=== PATIENT | female | born 1980 | race Caucasian/White ===

== ENCOUNTER 2016-10-16 14:46 | Emergency (ER) | payer OTHER ==
[2016-10-16 14:56] VITALS: BP 120/56; PULSE 82; TEMP 98.2
[2016-10-16] MEDS ORDERED: AMPICILLIN NA/SULBACTAM NA 3 GM in SODIUM CHLORIDE 100 ML IVPB ONE (15:31)
--- NOTE | 2016-10-16 15:38 | PDOC ---
History of Present Illness - General Chief Complaint: Bite Stated Complaint: CAT BITE Time Seen by Provider: 10/16/16 15:19 History Source: Patient Exam Limitations: No Limitations - History of Present Illness Initial Comments: 10/16/16 15:33 35 yr female right hand dominant with cat bite to her left hand 4 days ago by her own cat. Pt states the cat is UTD with rabies vaccines. Pt states she cleaned wound with peroxide then put liquid bandaid over the wound. Pt removed the liquid bandaid after she noticed the wound had pus drainage. Pt denies fever or chills. no medical history. 10/16/16 16:59 Timing/Duration: reports: other (3 nights one day ago ) Severity: Yes: moderate Location: reports: hands (left ) Respiratory Risk Factors: reports: other (cat bite) Past History - Past Medical History Allergies/Adverse Reactions: Allergies Allergy/AdvReac Type Severity Reaction Status Date / Time No Known Allergies Allergy Verified 07/20/11 20:32 Home Medications: Ambulatory Orders Amox-Tr/K Cl [Augmentin - 875Mg Tablet] 1 tab PO BID #14 tablet 10/16/16 - Psycho/Social/Smoking Cessation Hx Suicidal Ideation: No Smoking Status: Yes Smoking History: Current every day smoker Number of Cigarettes Smoked Daily: 6 Information on smoking cessation initiated: No Review of Systems - Review of Systems Able to Perform ROS?: Yes Is the patient limited Macedonian proficient: No Constitutional: No: Symptoms Reported HEENTM: No: Symptoms Reported Respiratory: No: Symptoms reported Cardiac (ROS): No: Symptoms Reported ABD/GI: No: Symptoms Reported : No: Symptoms Reported Integumentary: Yes: Symptoms Reported *Physical Exam - Vital Signs Last Vital Signs Temp Pulse Resp BP Pulse Ox 98.2 F 82 18 120/56 96 10/16/16 14:53 10/16/16 14:53 10/16/16 14:53 10/16/16 14:53 10/16/16 14:53 - Physical Exam General Appearance: Yes: Nourished, Appropriately Dressed HEENT: positive: EOMI, KAYLA Neck: positive: Supple Respiratory/Chest: positive: Lungs Clear, Normal Breath Sounds Cardiovascular: positive: Regular Rhythm, Regular Rate Extremity: positive: Normal Capillary Refill, Other (left hand dorsal surface with swelling , puncture wound to the dorsal surface and to the medial surface of the wrist , mild erythema no drainage from the wound ) Integumentary: positive: Normal Color, Dry, Warm ED Treatment Course - LABORATORY CBC & Chemistry Diagram: 10/16/16 15:55 10/16/16 15:55 - Consult/PCP Time Called: 16:33 Case discussed with personal care physician: Natan Stanton Consult Reason/Comments: case discussed with ER attending Dr.Nicole Walker. Medical Decision Making - Medical Decision Making 10/16/16 15:38 cc: cat bite left hand 4 days ago pt took 3 pills of amoxicllin at home [employer] no fever no chills hand is swollen, tender no streaking up arm will check labs, IVAB and xray pt is UTD with tetanus pt filled out the animal bite form 10/16/16 16:25 case discussed with ER attending and agrees with plan to monitor WBC, if WNL and pt continues to be afebrile, nostreaking up the arm, will be dc on augmentin and see pmd tomorrow and have pt follow up with PMD tomorrow for wound check 10/16/16 17:31 case discussed with PMD and agrees with plan to dc home follow up in the office , saturday or Saturday. pt agrees with the plan of care. all questions asked and answered before discharge. *DC/Admit/Observation/Transfer Diagnosis at time of Disposition: Cat bite of hand Qualifiers: Encounter type: initial encounter Laterality: left Qualified Code(s): S61.452A - Open bite of left hand, initial encounter - Discharge Dispostion Disposition: HOME Condition at time of disposition: Improved - Prescriptions Prescriptions: Amox-Tr/K Cl [Augmentin - 875Mg Tablet] 1 tab PO BID #14 tablet - Referrals Referrals: Natan Stanton MD [Primary Care Provider] - - Patient Instructions Additional Instructions: call your doctors office tomorrow to set up appointment for , saturday or Saturday take the Augmentin as directed for 7 days take ibuprofen 800mg every 6hrs for pain as needed keep hand elevated in sling at all times except to sleep return if any fever, chills, redness up the arm or pus drainage.
[2016-10-16] MEDS ORDERED: KETOROLAC TROMETHAMINE 30 MG/1 ML VIAL IVPB ONE (16:24)
[2016-10-16 16:25] LABS: ALBUMIN 4.1 g/dl (3.4-5.0); ALK PHOS 60 U/L (45-117); ANION GAP 9 (8-16); BILIRUBIN,TOTAL 0.5 mg/dL (0.2-1.0); CO2 26 mmol/L (21-32); CREATININE 0.6 mg/dL (0.55-1.02); GLUCOSE,RANDOM 86 mg/dL (74-106); SGOT/AST 11 U/L (15-37); SGPT/ALT 13 U/L (12-78); TOT PROT 7.3 g/dl (6.4-8.2)
[2016-10-16 16:26] LABS: BASOPHIL 0.5 % (0-2.0); EOSINOPHIL 1.1 % (0-4.5); MCH 30.1 pg (25.7-33.7); MCHC 33.8 g/dl (32.0-36.0); MEAN CELL VOLUME 89.1 fl (80-96); MEAN PLT VOLUME 10.1 fl (7.5-11.1); NEUTROPHILS 71.4 % (42.8-82.8); PLATELET COUNT 212 K/MM3 (134-434); RDW 13.4 % (11.6-15.6); WHITE BLOOD COUNT 12.2 K/mm3 (4.0-10.0)
[2016-10-16] MEDS ORDERED: KETOROLAC TROMETHAMINE 30 MG/1 ML VIAL ONE (16:29)
[2016-10-16] MEDS ORDERED: IBUPROFEN 400 MG TABLET (FP) PO ONE (16:54)
== END 2016-10-16 17:13 | disposition home or self-care (01) ==
LOC: JERFT 14:46
DX: S61.452A Open bite of left hand, initial encounter (principal); W55.01XA Bitten by cat, initial encounter; Y93.9 Activity, unspecified; Y92.9 Unspecified place or not applicable
CPT/HCPCS: 36415; 73130-TC-LT; 80053; 84703; 85025; 99281-25